=== PATIENT | female | born 2000 | race Two or more races ===

== ENCOUNTER → 2023-08-12 10:48 | Outpatient (REF) | payer OTHER, SELFPAY ==
[2023-08-13 15:55] LABS: Mumps Virus IgG Positive; Rubeola (Measles) IgG Positive; Varicella Zoster IgG (VZV) Positive
[2023-08-13 19:03] LABS: Rubella Negative
[2023-08-14 05:30] LABS: Hepatitis B Surface Antibody Negative
[2023-08-15 08:30] LABS: Quantiferon Mitogen minus NIL 9.68 IU/mL; Quantiferon NIL 0.09 IU/mL; Quantiferon Plus TB2 minus NIL 0.03 IU/mL (0.00-0.34); Quantiferon TB Gold Plus Negative (Negative)
== END ==
LOC: REG 10:48
PROVIDERS: ATTENDING PHYSICIAN Nurse Practitioner Family
DX: Z23 Encounter for immunization (principal)
CPT/HCPCS: 36415; 86480; 86706; 86735; 86762; 86765; 86787

== ENCOUNTER → 2023-11-03 07:28 | Outpatient (REF) | payer OTHER, SELFPAY ==
[2023-11-03 11:22] LABS: Hepatitis B Surface Antibody Negative
== END ==
LOC: REG 07:28
PROVIDERS: ATTENDING PHYSICIAN Nurse Practitioner Family
DX: Z23 Encounter for immunization (principal)
CPT/HCPCS: 36415; 86706

== ENCOUNTER → 2024-05-17 14:32 | Outpatient (REF) | payer OTHER, SELFPAY ==
[2024-05-17 18:42] LABS: Hepatitis B Surface Antibody Positive
== END ==
LOC: OHS 14:32
PROVIDERS: ATTENDING PHYSICIAN Nurse Practitioner Family
DX: Z23 Encounter for immunization (principal)
CPT/HCPCS: 36415; 86706

== ENCOUNTER → 2024-11-29 16:32 | Outpatient (REF) | payer BC, SELFPAY | LOC: CLAB 16:32 | PROVIDERS: ATTENDING PHYSICIAN Student in an Organized Health Care Education/Training Program | DX: D22.9 Melanocytic nevi, unspecified (principal) | CPT/HCPCS: 88305 ==

== ENCOUNTER 2024-11-30 14:57 | Outpatient (RCR) | payer BC, SELFPAY | END 2024-11-30 23:59 | disposition home or self-care (01) | LOC: RPT 14:57 | PROVIDERS: ATTENDING PHYSICIAN Student in an Organized Health Care Education/Training Program | DX: M25.551 Pain in right hip (principal); Z73.6 Limitation of activities due to disability; M62.81 Muscle weakness (generalized) | CPT/HCPCS: 97110; 97112; 97162 ==

== ENCOUNTER 2024-12-21 16:09 | Outpatient (RCR) | payer BC, SELFPAY | END 2024-12-21 23:59 | disposition home or self-care (01) | LOC: RPT 16:09 | PROVIDERS: ATTENDING PHYSICIAN Student in an Organized Health Care Education/Training Program | DX: M25.551 Pain in right hip (principal); Z73.6 Limitation of activities due to disability; M62.81 Muscle weakness (generalized) | CPT/HCPCS: 97110 ==

== ENCOUNTER → 2025-01-30 09:49 | Outpatient (REF) | payer BC, SELFPAY ==
[2025-02-03 16:25] LABS: Chlamydia trachomatis,ThinPrep Negative (Negative); Neisseria gonorrhoeae,ThinPrep Negative (Negative); Specimen Source Cervical
== END ==
LOC: CPAP 09:49
PROVIDERS: ATTENDING PHYSICIAN Obstetrics & Gynecology
DX: Z11.3 Encounter for screening for infections with a predominantly sexual mode of transmission (principal)
CPT/HCPCS: 87491; 87591

== ENCOUNTER 2025-01-31 13:03 | Outpatient (RCR) | payer BC, SELFPAY | END 2025-01-31 23:59 | disposition home or self-care (01) | LOC: RST 13:03 | PROVIDERS: ATTENDING PHYSICIAN Otolaryngology; REFERRING PHYSICIAN Student in an Organized Health Care Education/Training Program | DX: J38.2 Nodules of vocal cords (principal); M25.551 Pain in right hip (principal); R49.0 Dysphonia; Z73.6 Limitation of activities due to disability; M62.81 Muscle weakness (generalized) | CPT/HCPCS: 92507; 92524 ==

== ENCOUNTER 2025-02-21 09:31 | Outpatient (RCR) | payer BC, SELFPAY | END 2025-02-21 23:59 | disposition home or self-care (01) | LOC: RST 09:31 | PROVIDERS: ATTENDING PHYSICIAN Otolaryngology; REFERRING PHYSICIAN Student in an Organized Health Care Education/Training Program | DX: J38.2 Nodules of vocal cords (principal); R49.0 Dysphonia; M25.551 Pain in right hip; Z73.6 Limitation of activities due to disability; M62.81 Muscle weakness (generalized) | CPT/HCPCS: 92507 ==

== ENCOUNTER 2025-03-27 11:50 | Outpatient (RCR) | payer BC, SELFPAY | END 2025-03-27 23:59 | disposition home or self-care (01) | LOC: RST 11:50 | PROVIDERS: ATTENDING PHYSICIAN Otolaryngology; REFERRING PHYSICIAN Student in an Organized Health Care Education/Training Program | DX: J38.2 Nodules of vocal cords (principal); R49.0 Dysphonia; M25.551 Pain in right hip; Z73.6 Limitation of activities due to disability; M62.81 Muscle weakness (generalized) | CPT/HCPCS: 92507 ==

== ENCOUNTER 2025-04-10 10:29 | Outpatient (RCR) | payer BC, SELFPAY | END 2025-04-10 13:46 | disposition home or self-care (01) | LOC: RST 10:29 | PROVIDERS: ATTENDING PHYSICIAN Otolaryngology; REFERRING PHYSICIAN Student in an Organized Health Care Education/Training Program | DX: J38.2 Nodules of vocal cords (principal); R49.0 Dysphonia | CPT/HCPCS: 92507 ==